=== PATIENT | male | born 1935 | race Two or more races ===

== ENCOUNTER → 2016-07-11 | Outpatient (CLI) | payer MEDICARE, BC | END | disposition home or self-care (01) | LOC: RAD 17:02 | PROVIDERS: ATTEND Registered Nurse | DX: I67.82 Cerebral ischemia (principal); G31.89 Other specified degenerative diseases of nervous system; R90.82 White matter disease, unspecified; I63.9 Cerebral infarction, unspecified | CPT/HCPCS: 70450 ==

== ENCOUNTER → 2017-05-28 | Outpatient (CLI) | payer MEDICARE, BC ==
[2017-05-28 15:30] LABS: BASOPHILS # (AUTO) 0.02 x10^3/uL (0-0.1); BASOPHILS % (AUTO) 0 % (0-1); EOSINOPHILS # (AUTO) 0.03 x10^3/uL (0-0.4); EOSINOPHILS % (AUTO) 0 % (1-7); LYMPHOCYTES # (AUTO) 1.47 x10^3/uL (1-3.4); LYMPHOCYTES % (AUTO) 20 % (22-44); MD NO; MEAN CORPUSCULAR HEMOGLOBIN 30.5 pg (27.5-34.5); MEAN CORPUSCULAR HGB CONC 32.9 g/dL (33.2-36.2); MEAN CORPUSCULAR VOLUME 92.6 fL (81-97); MEAN PLATELET VOLUME 9.6 fL (7.4-10.4); MONOCYTES # (AUTO) 0.37 x10^3/uL (0.2-0.8); MONOCYTES % (AUTO) 5 % (2-9); NEUTROPHILS # (AUTO) 5.46 x10^3/uL (1.8-6.8); NEUTROPHILS % (AUTO) 74 % (42-75); PLATELET COUNT 127 x10^3/uL (130-400); RED BLOOD COUNT 4.75 x10^6/uL (4.38-5.82); RED CELL DISTRIBUTION WIDTH 14.9 % (9.4-14.8)
[2017-05-28 15:41] LABS: ALANINE AMINOTRANSFERASE 34 U/L (12-78); ALBUMIN 3.8 g/dL (3.4-5.0); ANION GAP 8 mmol/L (5-15); BILIRUBIN, DIRECT 0.2 mg/dL (0.1-0.2); CALCIUM 8.9 mg/dL (8.5-10.1); CHLORIDE 105 mmol/L (98-107); CREATININE 2.97 mg/dL (0.7-1.3)
[2017-05-28 15:44] LABS: ALKALINE PHOSPHATASE 100 U/L (45-117); BILIRUBIN,TOTAL 1.2 mg/dL (0.2-1.0); TOTAL PROTEIN 7.8 g/dL (6.4-8.2)
[2017-05-28 16:06] LABS: HEMOGLOBIN A1C 6.8 % (4.2-6.3)
== END | disposition home or self-care (01) ==
LOC: CFH 13:59
PROVIDERS: ATTEND Registered Nurse
DX: R41.3 Other amnesia (principal)
CPT/HCPCS: 36415; 70450; 80053; 82248; 82565; 83036; 84100; 85025

== ENCOUNTER 2020-10-02 01:33 | Emergency (ER) | payer MEDICARE, BC ==
[~2020-10-02] VITALS: Ht 172.7 cm; Wt 81.8 kg
[2020-10-02 01:43] VITALS: BP 153/38
--- NOTE | 2020-10-02 02:05 | NUR ---
Pt R index and middle finger lacerations cleaned. Irrigated w/ NSS. Tolerated well.
[2020-10-02] MEDS ORDERED: DIPH,PERTUSS(ACELL),TET VAC/PF 0.5 ML IM-VACC ONE (02:30)
[2020-10-02 02:48] LABS: BASOPHILS % (AUTO) 0 % (0-1); EOSINOPHILS % (AUTO) 0 % (1-7); LYMPHOCYTES % (AUTO) 4 % (22-44); MEAN CORPUSCULAR HEMOGLOBIN 29.8 pg (27.5-34.5); MEAN CORPUSCULAR HGB CONC 33.4 g/dL (33.2-36.2); MEAN PLATELET VOLUME 9.6 fL (7.4-10.4); MONOCYTES % (AUTO) 6 % (2-9); NEUTROPHILS % (AUTO) 89 % (42-75); PLATELET COUNT 100 x10^3/uL (130-400); RED BLOOD COUNT 3.46 x10^6/uL (4.38-5.82); RED CELL DISTRIBUTION WIDTH 14.7 % (9.4-14.8)
[2020-10-02 02:58] LABS: ALBUMIN 3.7 g/dL (3.4-5.0); ANION GAP 8 mmol/L (5-15); CALCIUM 8.9 mg/dL (8.5-10.1); CHLORIDE 109 mmol/L (98-107); CREATININE 2.41 mg/dL (0.7-1.3)
[2020-10-02] MEDS ORDERED: LIDOCAINE 1%, 10ML INFIL ONE (04:30)
[2020-10-02] MEDS ORDERED: BACITRACIN ZINC OINT 500U/GM, 0.9 GM ONE (04:52)
--- NOTE | 2020-10-02 05:17 | NUR ---
Wounds/stitches dressed. PIV removed. Wheelchair van cab called. Pt to be dsicharged shortly.
--- NOTE | 2020-10-02 05:38 | NUR ---
Pts daughter in law elected to forego cab voucher and is taking the pt via his personal electric power chair back to [facility]. Pt provided with cane and blanket. Left with discharge paperwork, PIV removed.
== END 2020-10-02 05:46 | disposition home or self-care (01) ==
LOC: ED 05:43
DX: S61.210A Laceration without foreign body of right index finger without damage to nail, initial encounter (principal); S61.212A Laceration without foreign body of right middle finger without damage to nail, initial encounter; E11.9 Type 2 diabetes mellitus without complications; R00.1 Bradycardia, unspecified; Z95.0 Presence of cardiac pacemaker; W01.0XXA Fall on same level from slipping, tripping and stumbling without subsequent striking against object, initial encounter; Y93.89 Activity, other specified; Y92.89 Other specified places as the place of occurrence of the external cause; Y99.8 Other external cause status
CPT/HCPCS: 12002; 36415; 80048; 82040; 85025; 90471; 90715; 93005; 99284; J3490